=== PATIENT | female | born 1990 | race Caucasian/White ===

== ENCOUNTER → 2018-12-20 | Outpatient (CLI) | payer OTHER ==
--- NOTE | 2018-12-20 14:55 | REP ---
THREE PHASE BONE SCAN OF THE KNEES: HISTORY: Lower extremity pain on the left persisting despite conservative care, question stress reaction or injury. TECHNIQUE: 22.0 mCi technetium 99m MDP is injected and standard three-phase imaging was acquired. SCINTIGRAPHIC FINDINGS: Anterior and posterior flow study of the calves is normal. Blood pool images show no regional evidence of increased uptake in the soft tissues of either calf. Delayed scan images demonstrate linear areas of mildly increased uptake in the proximal fibular diaphyses bilaterally consistent with stress periostitis. There is a mild posterior cortical tibial uptake distally on both sides as well. There is no evidence of stress fracture. IMPRESSION: Findings consistent with bilateral mild tibial and fibular stress periostitis. Electronically Signed by Mendel Nguyen MD 12/20/2018 04:10 P
== END ==
LOC: M RAD 10:30
PROVIDERS: ATTEND General Practice
DX: M25.562 Pain in left knee (principal)